=== PATIENT | female | born 1995 | race Hispanic/Latino ===

== ENCOUNTER 2020-12-16 07:31 | Emergency (ER) | payer MEDICAID ==
[~2020-12-16] VITALS: Ht 152.4 cm; Wt 53.5 kg
[2020-12-16 07:39] VITALS: BP 116/67
[2020-12-16 09:00] VITALS: BP 118/87
[2020-12-16] MEDS ORDERED: LIDOCAINE HCL 1% 20 ML VIAL ONE (09:04)
[2020-12-16 11:00] VITALS: BP 116/68
[2020-12-16] MEDS ORDERED: AMOX-429 PO (11:14)
[2020-12-16] MEDS ORDERED: ACET-66 PO (11:14)
[2020-12-16 12:25] VITALS: BP 120/70
== END 2020-12-16 12:35 | disposition home or self-care (01) ==
LOC: EDH 07:31
DX: N75.1 Abscess of Bartholin's gland (principal); J06.9 Acute upper respiratory infection, unspecified; Z20.822 Contact with and (suspected) exposure to COVID-19; Z88.6 Allergy status to analgesic agent
CPT/HCPCS: 56420; 87635; 87804 ×2; 99284; C9803

== ENCOUNTER 2021-05-05 13:16 | Emergency (ER) | payer MEDICAID ==
[~2021-05-05] VITALS: Ht 154.9 cm; Wt 54.4 kg
[~2021-05-05 13:16] MED LIST: ACET-66 PO; AMOX-429 PO
[2021-05-05] MEDS ORDERED: CYCLOBENZAPRINE HCL 10 MG TABLET ONE (14:41)
[2021-05-05] MEDS ORDERED: HYDROCODONE/ACETAMINOPHEN 10/325 MG TAB ONE (14:42)
[2021-05-05] MEDS ORDERED: HYDROCODONE/ACETAMINOPHEN 10/325 MG TAB PO ONE (15:00)
[2021-05-05] MEDS ORDERED: CYCLOBENZAPRINE HCL 10 MG TABLET PO ONE (15:00)
[2021-05-05 15:13] LABS: APPEARANCE,URINE Clear (CLEAR); BILIRUBIN,URINE Negative (NEGATIVE); COLOR,URINE Yellow (YELLOW); GLUCOSE, URINE (UA) Negative (NEGATIVE); HCG,QUAL RESULT NEGATIVE (NEGATIVE); KETONES,URINE Trace mg/dL (NEGATIVE); LEUKOCYTE ESTERASE ,URINE Small (NEGATIVE); NITRATE,URINE Negative (NEGATIVE); OCCULT BLOOD,URINE Negative (NEGATIVE); PROTEIN,URINE POS 1+ mg/dL (NEGATIVE)
[2021-05-05 15:19] LABS: BACTERIA,URINE Rare /HPF (None Seen); RBC,URINE None Seen /HPF (0-1)
[2021-05-05] MEDS ORDERED: PHEN-847 PO (15:54)
[2021-05-05] MEDS ORDERED: CYCL10TA16 PO (15:54)
[2021-05-05] MEDS ORDERED: CEPH500B PO ×2 (15:54→16:05)
[2021-05-05] MEDS ORDERED: CEFTRIAXONE 1G VIAL IVP ONE (16:00)
[2021-05-05] MEDS ORDERED: PHENAZOPYRIDINE HCL 200 MG TABLET PO ONE (16:00)
[2021-05-05 16:12] VITALS: BP 118/80
[2021-05-05] MEDS ORDERED: LIDOCAINE HCL-MPF 1% 2ML VIAL ONE (16:19)
== END 2021-05-05 16:29 | disposition home or self-care (01) ==
LOC: EDH 13:16
DX: N39.0 Urinary tract infection, site not specified (principal); M54.50 Low back pain, unspecified; I10 Essential (primary) hypertension; Z88.6 Allergy status to analgesic agent; Z79.899 Other long term (current) drug therapy
CPT/HCPCS: 72100; 81001; 81025; 87077; 87088; 87186; 96374; 99284; J0696; J3490

== ENCOUNTER 2022-09-02 09:21 | Emergency (ER) | payer MEDICAID ==
[~2022-09-02] VITALS: Ht 154.9 cm; Wt 59.0 kg
[~2022-09-02 09:21] MED LIST changes: +CEPH500B PO; +CYCL10TA16 PO; +PHEN-847 PO
[2022-09-02] MEDS ORDERED: CYCLOBENZAPRINE HCL 10 MG TABLET PO ONE (11:30)
[2022-09-02] MEDS ORDERED: CYCL10TA16 PO (12:05)
[2022-09-02 12:17] VITALS: BP 136/78
== END 2022-09-02 12:19 | disposition home or self-care (01) ==
LOC: EDH 09:21
DX: M43.6 Torticollis (principal); I10 Essential (primary) hypertension; Z88.6 Allergy status to analgesic agent

== ENCOUNTER 2023-10-06 09:28 | Emergency (ER) | payer MEDICAID, OTHER ==
[~2023-10-06] VITALS: Ht 154.9 cm; Wt 58.1 kg
[~2023-10-06 09:28] MED LIST changes: +CEPH500C2 PO; +TRAM-530 PO
[2023-10-06 10:13] LABS: APPEARANCE,URINE CLEAR (CLEAR); BILIRUBIN,URINE NEGATIVE (NEGATIVE); COLOR,URINE LIGHT-YELLOW (YELLOW); GLUCOSE, URINE (UA) NEGATIVE (NEGATIVE); KETONES,URINE NEGATIVE (NEGATIVE); LEUKOCYTE ESTERASE ,URINE NEGATIVE Leu/uL (NEGATIVE); NITRATE,URINE NEGATIVE (NEGATIVE); OCCULT BLOOD,URINE SMALL (NEGATIVE); PH,URINE 6.5 (5.0-8.0); PROTEIN,URINE NEGATIVE (NEGATIVE); UROBILINOGEN,URINE 0.2 mg/dL (0.2-1.0)
[2023-10-06 10:15] LABS: ADD UA MICROSCOPIC YES
[2023-10-06 10:18] LABS: MUCUS,URINE RARE LPF (None Seen); SQUAMOUS EPITHELIAL CELL,UR FEW /HPF (0-2)
[2023-10-06] MEDS: ACETAMINOPHEN 500 MG TABLET PO ONE (10:36)
[2023-10-06 10:42] LABS: BASOPHILS # (AUTO) 0.02 K/uL (0.00-0.20); BASOPHILS % (AUTO) 0.2 % (0.0-5.0); EOSINOPHILS # (AUTO) 0.08 K/uL (0.00-0.70); EOSINOPHILS % (AUTO) 0.7 % (0.0-8.0); HEMATOCRIT 37.4 % (36-48); IMMATURE GRANULOCYTE ABSOLUTE 0.03 K/uL (0-1); LYMPHOCYTES # (AUTO) 2.2 K/uL (1.0-4.8); LYMPHOCYTES % (AUTO) 19.9 % (21.0-51.0); MEAN CORPUSCULAR HEMOGLOBIN 31.6 pg (27.0-33.0); MEAN CORPUSCULAR HGB CONC 34.8 g/dL (32.0-36.0); MONOCYTES # (AUTO) 0.7 K/uL (0.1-1.0); MONOCYTES % (AUTO) 5.9 % (3.0-13.0); PLATELET COUNT (AUTO) 307 K/uL (130-400); RED BLOOD CELL COUNT(AUTO) 4.11 MIL/uL (4.00-5.50); RED CELL DISTRIBUTION WIDTH 13.1 % (11.0-15.5)
[2023-10-06 10:53] LABS: CREATININE 0.8 mg/dL (0.5-1.0); POTASSIUM 4.3 mmol/L (3.5-5.1)
[2023-10-06] MEDS ORDERED: CLIN-141 PO (11:37)
[2023-10-06] MEDS: CLINDAMYCIN 150 MG CAP PO ONE (11:37)
[2023-10-06 11:49] VITALS: BP 116/70; PULSE 71; RESP 18; O2SAT 98
== END 2023-10-06 11:52 | disposition home or self-care (01) ==
LOC: EDH 09:28
DX: N75.0 Cyst of Bartholin's gland (principal); Z79.899 Other long term (current) drug therapy; Z98.890 Other specified postprocedural states; Z88.6 Allergy status to analgesic agent
CPT/HCPCS: 36415; 80048; 81001; 85025

== ENCOUNTER 2023-10-08 13:14 | Emergency (ER) | payer OTHER ==
[~2023-10-08] VITALS: Ht 154.9 cm; Wt 58.1 kg
[~2023-10-08 13:14] MED LIST changes: +CLIN-141 PO
[2023-10-08] MEDS: ONDANSETRON 4MG INJ IVP ONE (13:38)
[2023-10-08] MEDS: CEFTRIAXONE 1G VIAL IVPB ONE (13:38)
[2023-10-08] MEDS: MORPHINE 2 MG SYG IVP ONE (13:42)
[2023-10-08] MEDS: LIDOCAINE 1%-EPI 1:100,000 20 ML VIAL ONE (14:10)
[2023-10-08] MEDS ORDERED: DOXY100C61 PO (14:19)
[2023-10-08 14:22] VITALS: BP 121/76; PULSE 82; RESP 14; O2SAT 98
== END 2023-10-08 14:30 | disposition home or self-care (01) ==
LOC: EDH 13:14
DX: N75.1 Abscess of Bartholin's gland (principal); Z88.6 Allergy status to analgesic agent; Z79.899 Other long term (current) drug therapy
CPT/HCPCS: 99284; 96365; 56420; 96375; 87070; 87076; 87086 ×3; 87186 ×3; J3490; J2270; J0696; J2405